=== PATIENT | female | born 1960 | race Caucasian/White ===

== ENCOUNTER → 2016-10-31 | Outpatient (CLI) | payer BC ==
[2016-10-31 08:19] LABS: CHLORIDE,CL 106 mmol/L (98-110); SODIUM,NA 142 mmol/L (136-146)
== END ==
LOC: MW.CHFP 07:32
PROVIDERS: ATTEND Family Medicine
DX: Z00.00 Encounter for general adult medical examination without abnormal findings (principal); E11.9 Type 2 diabetes mellitus without complications; I10 Essential (primary) hypertension; E66.01 Morbid (severe) obesity due to excess calories
CPT/HCPCS: 36415; 80053; 80061; 82044; 83036

== ENCOUNTER 2017-02-28 15:37 | Emergency (ER) | payer BC ==
[~2017-02-28 15:37] MED LIST: 50% Dextrose in Water 50 ML Syringe IV ONE; Lidocaine 2% 100 MG/5 ML Syringe IVPUSH ONE
[2017-02-28] MEDS ORDERED: Ketorolac 60 MG/2 ML SDV IM ONE (15:59)
--- NOTE | 2017-02-28 16:08 | EDM.PDOC ---
ED HPI GENERAL MEDICAL PROBLEM - General Chief Complaint: Lower Extremity Injury/Pain Stated Complaint: KNEE PAIN Time Seen by Provider: 02/28/17 15:45 Source of Information: Reports: Patient, Family History Limitations: Reports: No Limitations - History of Present Illness INITIAL COMMENTS - FREE TEXT/NARRATIVE: History of present illness: 56-year-old female comes in with complaints of right sided leg pain primarily above the popliteal region and into the hip. Patient indicates she was doing some outside work yesterday leaning over pulling weeds which could be contributory that she also feels that it could be something related to her history of her right hip popping in and out when she was much younger. Review of systems: As per history of present illness and below otherwise all systems reviewed and negative. Past medical history: As per history of present illness and as reviewed below otherwise noncontributory. Surgical history: As per history of present illness and as reviewed below otherwise noncontributory. Social history: No reported history of drug or alcohol abuse. Family history: As per history of present illness and as reviewed below otherwise noncontributory. Physical exam: HEENT: Atraumatic, normocephalic, pupils reactive, negative for conjunctival pallor or scleral icterus, mucous membranes moist, throat clear, neck supple, nontender, trachea midline. Lungs: Clear to auscultation, breath sounds equal bilaterally, chest nontender. Heart: S1S2, regular, negative for clicks, rubs, or JVD. Abdomen: Soft, nondistended, nontender. Negative for masses or hepatosplenomegaly. Negative for costovertebral tenderness. Pelvis: Stable nontender. Genitourinary: Deferred. Rectal: Deferred. Extremities: Atraumatic, negative for cords or calf pain. Neurovascular unremarkable. Neuro: Awake, alert, oriented. Cranial nerves II through XII unremarkable. Cerebellum unremarkable. Motor and sensory unremarkable throughout. Exam nonfocal. Global assessment is benign save the subjective complaint as noted in history of present illness Diagnostics: [X-ray right hip] Therapeutics: [Toradol, Norflex] Impression: [Leg pain] Plan: [Alternate ice/heat, Norflex, meloxicam] Definitive disposition and diagnosis as appropriate pending reevaluation and review of above. right knee Pain Score (Numeric/FACES): 3 - Related Data Allergies Allergy/AdvReac Type Severity Reaction Status Date / Time No Known Allergies Allergy Verified 05/11/14 08:05 Home Meds: Home Meds DULoxetine [Cymbalta] 02/28/17 [History] Meloxicam 7.5 mg PO BID #30 tablet 02/28/17 [Rx] Orphenadrine [Norflex] 100 mg PO BID #28 tab.er 02/28/17 [Rx] Pregabalin [Lyrica] 75 mg PO DAILY 02/28/17 [History] Past Medical History Cardiovascular History: Reports: Hypertension Musculoskeletal History: Reports: Other (See Below) Other Musculoskeletal History: neuropathy - Past Surgical History HEENT Surgical History: Reports: Oral Surgery Female Surgical History: Reports: Hysterectomy Social & Family History - Family History Family Medical History: Noncontributory - Tobacco Use Smoking Status *Q: Never Smoker - Recreational Drug Use Recreational Drug Use: No Review of Systems - Review of Systems Review Of Systems: See Below (History of present illness) ED EXAM, GENERAL - Physical Exam Exam: See Below (See history of present illness) Course - Vital Signs Last Recorded V/S: Last Vital Signs Temp 36.4 C 02/28/17 15:47 Pulse 87 02/28/17 15:47 Resp 18 02/28/17 15:47 BP 144/78 H 02/28/17 15:47 Pulse Ox 96 02/28/17 15:47 - Orders/Labs/Meds Orders: Active Orders 24 hr Category Date Time Status Hip Min 2V or 3V Rt [CR] Stat Exams 02/28/17 15:59 Ordered Orphenadrine [Norflex] Med 02/28/17 16:00 Ordered 60 mg IM Q12H Medication Orders Orphenadrine Citrate (Norflex) 60 mg IM Q12H CAYETANO Last Admin: 02/28/17 16:34 Dose: 60 mg Meds: Medications Generic Name Dose Route Start Last Admin Trade Name Freq PRN Reason Stop Dose Admin Orphenadrine Citrate 60 mg 02/28/17 16:00 02/28/17 16:34 Norflex IM 60 mg Q12H CAYETANO Administration Discontinued Medications Generic Name Dose Route Start Last Admin Trade Name Freq PRN Reason Stop Dose Admin Ketorolac Tromethamine 60 mg 02/28/17 15:59 02/28/17 16:33 Toradol IM 02/28/17 16:00 60 mg ONETIME ONE Administration Departure - Departure Time of Disposition: 16:42 Disposition: Home, Self-Care 01 Condition: Good Clinical Impression: Leg pain - Discharge Information Forms: ED Department Discharge Additional Instructions: The following information is given to patients seen in the emergency department who are being discharged to home. This information is to outline your options for follow-up care. We provide all patients seen in our emergency department with a follow-up referral. The need for follow-up, as well as the timing and circumstances, are variable depending upon the specifics of your emergency department visit. If you don't have a primary care physician on staff, we will provide you with a referral. We always advise you to contact your personal physician following an emergency department visit to inform them of the circumstance of the visit and for follow-up with them and/or the need for any referrals to a consulting specialist. The emergency department will also refer you to a specialist when appropriate. This referral assures that you have the opportunity for follow-up care with a specialist. All of these measure are taken in an effort to provide you with optimal care, which includes your follow-up. Under all circumstances we always encourage you to contact your private physician who remains a resource for coordinating your care. When calling for follow-up care, please make the office aware that this follow-up is from your recent emergency room visit. If for any reason you are refused follow-up, please contact the [facility] Emergency Department at and asked to speak to the emergency department charge nurse. Take medication as directed Follow-up with PCP 1-2 days Return to ED as needed as discussed - My Orders Last 24 Hours: My Active Orders 02/28/17 15:59 Hip Min 2V or 3V Rt [CR] Stat 02/28/17 16:00 Orphenadrine [Norflex] 60 mg IM Q12H - Assessment/Plan Last 24 Hours: My Active Orders 02/28/17 15:59 Hip Min 2V or 3V Rt [CR] Stat 02/28/17 16:00 Orphenadrine [Norflex] 60 mg IM Q12H
[2017-03-01 08:06] VITALS: BP 116/69
--- NOTE | 2017-03-02 13:04 | CR ---
EXAM DATE: 02/28/17 PATIENT'S AGE: 56 Patient: THERESE LAMAR Facility: [place], [place] Site . Site : 1960 Study: XRay Hip Right [id number]/8/2017 4:23:08 PM Ordering Physician: Doctor Hamm Final Report: INDICATION: Pain, trauma. Technique: Right hip 2 views. Impression: No fracture. There is diffuse narrowing of the joint space with early osteophytic hypertrophic changes along the superior and inferior margins of the acetabulum. Dictated by Abdifatah Olguin MD @ Feb 28 2017 4:32PM (Electronic Signature) Report Signed by Proxy. WAQAS
== END 2017-02-28 17:41 | disposition home or self-care (01) ==
LOC: MW.ED 15:37
DX: M79.604 Pain in right leg (principal); I10 Essential (primary) hypertension; Z79.899 Other long term (current) drug therapy; Z90.710 Acquired absence of both cervix and uterus
CPT/HCPCS: 73502; 96372; 99283; J1885; J2360; 99282; J7060

== ENCOUNTER 2019-08-14 18:34 | Emergency (ER) | payer BC ==
--- NOTE | 2019-08-14 19:32 | EDM.PDOC ---
ED HPI GENERAL MEDICAL PROBLEM - General Chief Complaint: General Stated Complaint: FLU Time Seen by Provider: 08/14/19 19:32 Source of Information: Reports: Patient History Limitations: Reports: No Limitations - History of Present Illness INITIAL COMMENTS - FREE TEXT/NARRATIVE: 59-year-old female who presents to the emergency room chief complaint of nausea vomiting and diarrhea. States this is been going on for 2 days she cannot hold anything down and feels dehydrated. Also complains of back spasm and lower leg pains secondary to her neuropathy. Denies fever chills. Shortness of breath or chest pain. Patient denies any urinary symptoms. Onset: Gradual Onset Date: 08/12/19 Duration: Day(s):, Getting Worse Location: Reports: Abdomen Quality: Reports: Ache Severity: Moderate Improves with: Reports: None Worsens with: Reports: None Associated Symptoms: Reports: Nausea/Vomiting, Other (Complains of diarrhea) back Pain Score (Numeric/FACES): 8 - Related Data Allergies Allergy/AdvReac Type Severity Reaction Status Date / Time amoxicillin [From Augmentin] Allergy Diarrhea Verified 08/14/19 18:42 clavulanic acid Allergy Diarrhea Verified 08/14/19 18:42 [From Augmentin] Home Meds: Home Meds DULoxetine [Cymbalta] 90 mg PO DAILY 02/28/17 [History] Pregabalin [Lyrica] 75 mg PO DAILY 02/28/17 [History] Losartan/Hydrochlorothiazide [Losartan-HCTZ 100-12.5 MG] 1 tab PO DAILY [History] Ondansetron [Zofran ODT] 4 mg PO Q6H PRN #20 tab.dis 08/14/19 [Rx] metFORMIN [Glucophage XR] 500 mg PO BID 08/14/19 [History] Past Medical History HEENT History: Reports: None Cardiovascular History: Reports: Hypertension Respiratory History: Reports: None Gastrointestinal History: Reports: None Genitourinary History: Reports: None BURNISHER History: Reports: None Musculoskeletal History: Reports: Other (See Below) Other Musculoskeletal History: neuropathy Neurological History: Reports: None Psychiatric History: Reports: None Endocrine/Metabolic History: Reports: Diabetes, Type II Hematologic History: Reports: None Immunologic History: Reports: None Oncologic (Cancer) History: Reports: None Dermatologic History: Reports: None - Infectious Disease History Infectious Disease History: Reports: Chicken Pox, Measles, Shingles - Past Surgical History Head Surgeries/Procedures: Reports: None HEENT Surgical History: Reports: Oral Surgery Cardiovascular Surgical History: Reports: None Respiratory Surgical History: Reports: None GI Surgical History: Reports: None Female Surgical History: Reports: Hysterectomy Endocrine Surgical History: Reports: None Neurological Surgical History: Reports: None Musculoskeletal Surgical History: Reports: None Oncologic Surgical History: Reports: None Dermatological Surgical History: Reports: None Social & Family History - Family History Family Medical History: Noncontributory - Tobacco Use Smoking Status *Q: Never Smoker Second Hand Smoke Exposure: No - Caffeine Use Caffeine Use: Reports: None - Recreational Drug Use Recreational Drug Use: No ED ROS GENERAL - Review of Systems Review Of Systems: See Below Constitutional: Reports: Weakness HEENT: Reports: No Symptoms Respiratory: Reports: No Symptoms Cardiovascular: Reports: No Symptoms Endocrine: Reports: Fatigue GI/Abdominal: Reports: Diarrhea, Nausea, Vomiting : Reports: No Symptoms Musculoskeletal: Reports: Back Pain, Leg Pain Skin: Reports: No Symptoms Neurological: Reports: Numbness Psychiatric: Reports: No Symptoms Hematologic/Lymphatic: Reports: No Symptoms Immunologic: Reports: No Symptoms ED EXAM, GENERAL - Physical Exam Exam: See Below Free Text/Narrative:: This is a 59-year-old female who presents to the emergency room with a chief complaint of nausea vomiting diarrhea. Patient is attributed to her eating some food but does not know if she had the flu. Patient also complains of back pain and neuropathy. Patient states her back's been hurting more since she has been vomiting. Patient claims she cannot hold anything down and is very dehydrated Exam Limited By: No Limitations General Appearance: Alert, WD/WN, No Apparent Distress Eye Exam: Bilateral Eye: Normal Fundi, Normal Inspection, PERRL Ears: Normal External Exam, Normal Canal, Hearing Grossly Normal Ear Exam: Bilateral Ear: Auricle Normal, Canal Normal, TM normal Nose: Normal Inspection, Normal Mucosa, No Blood Throat/Mouth: Normal Inspection, Normal Lips, Normal Teeth, Normal Gums, Normal Oropharynx, Normal Voice, No Airway Compromise Head: Atraumatic, Normocephalic Neck: Normal Inspection, Supple, Non-Tender Respiratory/Chest: No Respiratory Distress, Lungs Clear, Normal Breath Sounds, No Accessory Muscle Use, Chest Non-Tender Cardiovascular: Normal Peripheral Pulses, Regular Rate, Rhythm, No Edema, No JVD , No Murmur GI/Abdominal: Normal Bowel Sounds, Soft, Non-Tender, No Organomegaly, No Distention, No Abnormal Bruit, No Mass, Pelvis Stable Rectal (Female) Exam: Normal Exam, Normal Rectal Tone Back Exam: Normal Inspection, Full Range of Motion, CVA Tenderness (L) Extremities: Normal Inspection, Normal Range of Motion, Normal Capillary Refill Neurological: Alert, Oriented, CN II-XII Intact, Normal Cognition, Normal Gait, Normal Reflexes, No Motor/Sensory Deficits Psychiatric: Normal Affect, Normal Mood, Anxious Skin Exam: Warm, Dry, Intact, Normal Color Lymphatic: No Adenopathy Course - Vital Signs Last Recorded V/S: Last Vital Signs Temp 98.2 F 08/14/19 19:56 Pulse 93 08/14/19 20:58 Resp 16 08/14/19 20:58 BP 129/76 08/14/19 20:58 Pulse Ox 96 08/14/19 20:58 - Orders/Labs/Meds Labs: Laboratory Tests 08/14/19 08/14/19 08/14/19 Range/Units 19:49 19:49 19:49 WBC 10.74 (4.0-11.0) K/uL RBC 5.52 (4.30-5.90) M/uL Hgb 15.9 (12.0-16.0) g/dL Hct 46.7 H (36.0-46.0) % MCV 84.6 (80.0-98.0) fL MCH 28.8 (27.0-32.0) pg MCHC 34.0 (31.0-37.0) g/dL RDW Std Deviation 44.0 (28.0-62.0) fl RDW Coeff of Yolanda 14 (11.0-15.0) % Plt Count 271 (150-400) K/uL MPV 10.10 (7.40-12.00) fL Neut % (Auto) 94.5 H (48.0-80.0) % Lymph % (Auto) 3.0 L (16.0-40.0) % Co[place] % (Auto) 2.4 (0.0-15.0) % Eos % (Auto) 0.0 (0.0-7.0) % Baso % (Auto) 0.1 (0.0-1.5) % Neut # (Auto) 10.2 H (1.4-5.7) K/uL Lymph # (Auto) 0.3 L (0.6-2.4) K/uL [place] # (Auto) 0.3 (0.0-0.8) K/uL Eos # (Auto) 0.0 (0.0-0.7) K/uL Baso # (Auto) 0.0 (0.0-0.1) K/uL Nucleated RBC % 0.0 /100WBC Nucleated RBCs # 0 K/uL Sodium 142 (136-145) mmol/L Potassium 3.9 (3.5-5.1) mmol/L Chloride 104 (98-107) mmol/L Carbon Dioxide 26.2 (21.0-32.0) mmol/L BUN 16 (7.0-18.0) mg/dL Creatinine 1.2 H (0.6-1.0) mg/dL Est Cr Clr Drug Dosing 51.45 mL/min Estimated GFR (MDRD) 45.7 ml/min Glucose 211 H (74-106) mg/dL Calcium 9.0 (8.5-10.1) mg/dL Total Bilirubin 0.5 (0.2-1.0) mg/dL AST 23 (15-37) IU/L ALT 42 (14-63) IU/L Alkaline Phosphatase 97 (46-116) U/L Total Protein 8.0 (6.4-8.2) g/dL Albumin 3.7 (3.4-5.0) g/dL Globulin 4.3 H (2.6-4.0) g/dL Albumin/Globulin Ratio 0.9 (0.9-1.6) Urine Color YELLOW Urine Appearance CLEAR Urine pH 5.5 (5.0-8.0) Ur Specific [place] >= 1.030 (1.001-1.035) Urine Protein TRACE H (NEGATIVE) mg/dL Urine Glucose (UA) NEGATIVE (NEGATIVE) mg/dL Urine Ketones TRACE H (NEGATIVE) mg/dL Urine Occult Blood NEGATIVE (NEGATIVE) Urine Nitrite NEGATIVE (NEGATIVE) Urine Bilirubin NEGATIVE (NEGATIVE) Urine Urobilinogen 0.2 (<2.0) EU/dL Ur Leukocyte Esterase NEGATIVE (NEGATIVE) Urine RBC 0-1 (0-2/HPF) Urine WBC 0-1 (0-5/HPF) Ur Epithelial Cells OCCASIONAL (NONE-FEW) Urine Bacteria RARE (NEGATIVE) Urine Mucus LIGHT (NONE-MOD) Meds: Medications Discontinued Medications Generic Name Dose Route Start Last Admin Trade Name Mike PRN Reason Stop Dose Admin Sodium Chloride 1,000 mls @ 1,000 mls/hr 08/14/19 19:39 08/14/19 19:55 Normal Saline IV 08/14/19 20:38 1,000 mls/hr .Bolus ONE Administration Morphine Sulfate 4 mg 08/14/19 20:51 08/14/19 20:57 Morphine IVPUSH 08/14/19 20:52 4 mg ONETIME ONE Administration Ondansetron HCl 4 mg 08/14/19 19:41 08/14/19 19:55 Zofran IVPUSH 08/14/19 19:42 4 mg ONETIME ONE Administration Departure - Departure Time of Disposition: 21:31 Disposition: Home, Self-Care 01 Condition: Good Clinical Impression: Gastroenteritis - Discharge Information *PRESCRIPTION DRUG MONITORING PROGRAM REVIEWED*: Not Applicable *COPY OF PRESCRIPTION DRUG MONITORING REPORT IN PATIENT DILL[place]: Not Applicable Instructions: Viral Gastroenteritis, Adult, [id number] Referrals: Christa Moncada MD [Primary Care Provider] - Forms: ED Department Discharge Sepsis Event Note - Evaluation Sepsis Screening Result: No Definite Risk - Focused Exam Vital Signs: Vital Signs Temp Pulse Resp BP Pulse Ox 08/14/19 20:58 93 16 129/76 96 08/14/19 19:56 98.2 F 95 16 154/89 H 95 08/14/19 18:44 97.7 F 107 H 18 132/109 H 98 Date Exam was Performed: 08/14/19 Time Exam was Performed: 21:28
[2019-08-14] MEDS ORDERED: Sodium Chloride 0.9% 1,000 ML IV ONE (19:39)
[2019-08-14] MEDS ORDERED: Ondansetron 4 MG/2 ML SDV IVPUSH ONE (19:41)
[2019-08-14 20:16] LABS: CARBON DIOXIDE,CO2 26.2 mmol/L (21.0-32.0); POTASSIUM,K 3.9 mmol/L (3.5-5.1)
[2019-08-14] MEDS ORDERED: Morphine 4 MG/ML Syringe IVPUSH ONE (20:51)
[2019-08-14 20:59] VITALS: BP 129/76; PULSE 93
== END 2019-08-14 21:48 | disposition home or self-care (01) ==
LOC: MW.ED 18:34
DX: K52.9 Noninfective gastroenteritis and colitis, unspecified (principal); I10 Essential (primary) hypertension; E11.40 Type 2 diabetes mellitus with diabetic neuropathy, unspecified; Z79.84 Long term (current) use of oral hypoglycemic drugs; Z79.899 Other long term (current) drug therapy; Z88.0 Allergy status to penicillin; Z88.1 Allergy status to other antibiotic agents
CPT/HCPCS: 36415; 80053; 81001; 85025; 87804; 96361; 96374; 96375; 99284; J2270; J2405; J7030; 99283